=== PATIENT | male | born 1955 | race Caucasian/White ===

== ENCOUNTER 2023-07-13 13:28 | Emergency (ER) | payer OTHER, SELFPAY ==
[2023-07-13] VITALS (7 sets, daily range): BP systolic 149–174; BP diastolic 79–82; PULSE 74–80; TEMP 36.6; O2SAT 91–96; BMI 29.6
--- NOTE | 2023-07-13 13:33 | ECG_ITS ---
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
--- NOTE | 2023-07-13 13:43 | ED_ITS ---
HPI - Recheck/Abnormal Lab/Rx General Chief Complaint: Recheck/Abnormal Lab/Rx Stated Complaint: ABNORMAL LAB VALUE Time Seen by Provider: 07/13/23 13:32 Source: patient Mode of arrival: walk-in History of Present Illness HPI narrative: Patient is a 67-year-old male who presents to the emergency department at the recommendation of his PCP office for low sodium of 122. Patient followed up with his PCP today after an urgent care visit last week for upper respiratory symptoms of ear pressure and sinus congestion. He was started on antibiotics without improvement and yesterday his PCP prescribed steroids. He states yesterday he had a sensation of feeling headache, dizzy which is typical for him when his sodium has been low in the past. He has required hospitalization for low sodium previously. 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 He states he felt his sodium was low and requested blood work, the labs came back today with a sodium of 122. He denies any chest pain, shortness of breath, fevers, vomiting. Related Data Home Medications ?Medication ?Instructions ?Recorded ?Confirmed amoxicillin 875 mg-potassium tab 07/13/23 clavulanate 125 mg tablet atorvastatin 10 mg tablet mg 07/13/23 clonidine HCl 0.2 mg tablet mg 07/13/23 fluticasone fur. 200 mcg-umeclid inhalation 07/13/23 62.5 mcg-vilant 25 mcg inhalat.powder (Trelegy Ellipta) losartan 100 mg tablet mg 07/13/23 methylprednisolone 4 mg tablets in mg 07/13/23 a dose pack montelukast 10 mg tablet mg 07/13/23 tamsulosin 0.4 mg capsule mg PO 07/13/23 Allergies Allergy/AdvReac Type Severity Reaction Status Date / Time No Known Drug Allergies Allergy Verified 07/13/23 13:32 Review of Systems ROS Constitutional Denies: fever or chills Ears, nose, mouth, and throat Reports: nasal congestion; Denies: throat pain Cardiovascular Denies: chest pain Respiratory Denies: shortness of breath Gastrointestinal Denies: nausea or vomiting Musculoskeletal Denies: back pain Integumentary/Breast Denies: rash Neurological Reports: headache Hematologic/Lymphatic Denies: easy bruising or easy bleeding Exam Narrative Exam Narrative: Gen.: Awake, alert, in no distress Head: Normocephalic, atraumatic ENT: Moist mucous membranes Respiratory: No respiratory distress, lungs clear bilaterally Cardio: Regular rate and rhythm Gastrointestinal: Abdomen is soft, nondistended and nontender to palpation Extremities: Moves extremities equally Psych: Normal mood and affect Neuro: No focal neuro deficit Skin: Warm, dry, intact Constitutional Vital Signs, click to edit/add: Last Vital Signs Temp 98 F 07/13/23 14:10 Pulse 75 07/13/23 14:10 Resp 13 07/13/23 14:10 BP 155/79 H 07/13/23 14:00 Pulse Ox 91 L 07/13/23 14:10 O2 Del Method Room Air 07/13/23 13:32 Course Vital Signs Vital signs: Vital Signs Pulse Rate 77 07/13/23 13:32 Respiratory Rate 18 07/13/23 13:32 Blood Pressure 174/79 H 07/13/23 13:32 Pulse Oximetry 95 07/13/23 13:32 Oxygen Delivery Method Room Air 07/13/23 13:32 Temperature 98 F 07/13/23 14:10 Pulse Rate 75 07/13/23 14:10 Respiratory Rate 13 07/13/23 14:10 Blood Pressure 155/79 H 07/13/23 14:00 Pulse Oximetry 91 L 07/13/23 14:10 Oxygen Delivery Method Room Air 07/13/23 13:32 MDM - Recheck/Abnormal Lab/Rx MDM Narrative Medical decision making narrative: Labs repeated showing sodium 127, patient was treated with IV fluids. He is referred to endocrinology through [facility]. Follow-up with PCP and return to the ER if symptoms change or worsen. Medical Records Attestation: I reviewed the patient's medical records. Lab Data Attestation: I reviewed the patient's lab results. Labs: Lab Results 07/13/23 Range/Units 13:40 WBC 10.4 (4.0-11.0) 10^3/uL RBC 4.66 L (4.70-6.10) 10^6/uL Hgb 16.1 (14.0-18.0) g/dL Hct 45.6 (42.0-54.0) % MCV 97.9 H (80.0-94.0) fL MCH 34.5 H (25.9-34.0) pg MCHC 35.3 H (29.9-35.2) g/dL RDW 12.8 (11.0-15.0) % Plt Count 201 (150-450) 10^3/uL MPV 8.7 L (9.5-13.5) fL Neut % (Auto) 87.4 H (43.0-75.0) % Lymph % (Auto) 7.3 L (20.5-60.0) % [place] % (Auto) 4.0 (1.7-12.0) % Eos % (Auto) 0.2 L (0.9-7.0) % Baso % (Auto) 0.2 (0.2-2.0) % Neut # (Auto) 9.1 H (1.4-6.5) 10^3/uL Lymph # (Auto) 0.8 L (1.2-3.8) 10^3/uL [place] # (Auto) 0.4 (0.3-0.8) 10^3/uL Eos # (Auto) 0.0 (0.0-0.7) 10^3/uL Baso # (Auto) 0.0 (0.0-0.1) 10^3/uL Abs Immat Gran (auto) 0.09 H (0.00-0.03) 10^3/uL Imm/Tot Granulo (auto) 0.9 H (0.0-0.5) % Sodium 127 L (136-145) mmol/L Potassium 4.3 (3.5-5.1) mmol/L Chloride 94 L (98-107) mmol/L Carbon Dioxide 23.1 (21.0-32.0) mmol/L Anion Gap 14.2 BUN 16.0 (7.0-18.0) mg/dL Creatinine 0.93 (0.70-1.30) mg/dL Est GFR ( Amer) >60 (>=60) Est GFR (Non-Af Amer) >60 (>=60) BUN/Creatinine Ratio 17.2 Glucose 145 H (74-106) mg/dL Calcium 9.6 (8.5-10.1) mg/dL Magnesium 2.1 (1.8-2.4) mg/dL Total Bilirubin 0.7 (0.2-1.0) mg/dL AST 24 (15-37) U/L ALT 38 (16-63) U/L Alkaline Phosphatase 83 (46-116) U/L Total Protein 8.1 (6.4-8.2) g/dL Albumin 3.6 (3.4-5.0) g/dL Globulin 4.5 g/dL Albumin/Globulin Ratio 0.8 TSH 2.276 (0.358-3.740) uIU/mL ECG Data Attestation: I personally reviewed and interpreted this ECG as follows: (Normal sinus rhythm at a rate of 76, no acute ST elevation or ectopy. EKG reviewed by attending physician) Discharge Plan Discharge Stand Alone Forms: Portal Instructions Chief Complaint: Recheck/Abnormal Lab/Rx Clinical Impression: Acute hyponatremia Patient Disposition: Home, Self-Care Time of Disposition Decision: 14:37 Condition: Good Prescriptions / Home Meds: No Action atorvastatin 10 mg tablet clonidine HCl 0.2 mg tablet tamsulosin 0.4 mg capsule PO montelukast 10 mg tablet methylprednisolone 4 mg tablets,dose pack losartan 100 mg tablet amoxicillin-pot clavulanate 875-125 mg tablet Trelegy Ellipta 200-62.5-25 mcg blister with device INHALATION Print Language: Vietnamese Instructions: Hyponatremia (ED) Additional Instructions: Dr Indy Ramirez: [id number], [place] [address]; - Endocrinology Referrals: RD ZELAYA [Primary Care Provider] - 1 week
[2023-07-13 13:53] LABS: Basophils Percent Auto 0.2 % (0.2-2.0); Eosinophils Percent Auto 0.2 % (0.9-7.0); Hematocrit 45.6 % (42.0-54.0); Hemoglobin 16.1 g/dL (14.0-18.0); Immature Granulocytes Abs Auto 0.09 10^3/uL (0.00-0.03); Immature Granulocytes Pct Auto 0.9 % (0.0-0.5); Lymphocytes Absolute Auto 0.8 10^3/uL (1.2-3.8); Lymphocytes Percent Auto 7.3 % (20.5-60.0); Mean Corpuscular HGB Conc 35.3 g/dL (29.9-35.2); Mean Corpuscular Hemoglobin 34.5 pg (25.9-34.0); Mean Corpuscular Volume 97.9 fL (80.0-94.0); Mean Platelet Volume 8.7 fL (9.5-13.5); Monocytes Absolute Auto 0.4 10^3/uL (0.3-0.8); Neutrophils Absolute Auto 9.1 10^3/uL (1.4-6.5); Neutrophils Percent Auto 87.4 % (43.0-75.0); Platelet Count 201 10^3/uL (150-450); Red Blood Count 4.66 10^6/uL (4.70-6.10); Red Cell Distribution Width 12.8 % (11.0-15.0); White Blood Count 10.4 10^3/uL (4.0-11.0)
[2023-07-13] MEDS: 0.9 % SODIUM CHLORIDE 1,000 ML 1000 ML IV (13:53)
[2023-07-13 14:20] LABS: Alanine Aminotransferase 38 U/L (16-63); Albumin Globulin Ratio 0.8; Albumin Level 3.6 g/dL (3.4-5.0); Alkaline Phosphatase 83 U/L (46-116); Anion Gap 14.2; Aspartate Amino Transferase 24 U/L (15-37); BUN Creatinine Ratio 17.2; Bilirubin Total 0.7 mg/dL (0.2-1.0); Calcium 9.6 mg/dL (8.5-10.1); Carbon Dioxide 23.1 mmol/L (21.0-32.0); Chloride 94 mmol/L (98-107); Estimated GFR (African America >60 (>=60); Estimated GFR (Non-African Ame >60 (>=60); Globulin 4.5 g/dL; Glucose 145 mg/dL (74-106); Magnesium 2.1 mg/dL (1.8-2.4); Potassium 4.3 mmol/L (3.5-5.1); Sodium 127 mmol/L (136-145); Thyroid Stimulating Hormone 2.276 uIU/mL (0.358-3.740); Total Protein 8.1 g/dL (6.4-8.2)
== END 2023-07-13 14:53 | disposition home or self-care (01) ==
PROVIDERS: Physician Assistant; Emergency Provider Emergency Medicine Emergency Medical Services; PCP Nurse Practitioner Family
DX: E87.1 Hypo-osmolality and hyponatremia (principal); Z79.899 Other long term (current) drug therapy
CPT/HCPCS: 36415; 80053; 83735; 84443; 85025; 93005; 96360; 99285